=== PATIENT | female | born 1950 | race Caucasian/White ===

== ENCOUNTER 2019-07-04 10:36 | Emergency (ER) | payer MEDICARE ==
--- NOTE | 2019-07-04 11:26 | ED ---
General Adult HPI - General Chief complaint: Upper Respiratory Infection Stated complaint: chest/head congestion Time Seen by Provider: 07/04/19 11:00 Source: patient, RN notes reviewed, old records reviewed Mode of arrival: ambulatory Limitations: no limitations - History of Present Illness Initial comments: This is a 69-year-old female presents emergency department stating that over the weekend she had a fever for 103 but since then the fever has broke but she continues to cough as of yesterday she coughed up green sputum for she decided come emergency department. Patient denies any chest pain. Patient denies any shortness of breath or difficulty breathing. Patient denies any fever today. Patient denies any chills. Patient denies any nausea vomiting diarrhea. Patient has any rashes or lesions. Patient states she did not get a flu shot. - Related Data Previous Rx's Medication Instructions Recorded Azithromycin [Zithromax Tri-Cameron] 500 mg PO DAILY #3 tab 07/04/19 Allergies Allergy/AdvReac Type Severity Reaction Status Date / Time codeine AdvReac Nausea & Verified 07/04/19 10:52 Vomiting Review of Systems ROS Statement: Those systems with pertinent positive or pertinent negative responses have been documented in the HPI. ROS Other: All systems not noted in ROS Statement are negative. Past Medical History Past Medical History: No Reported History History of Any Multi-Drug Resistant Organisms: None Reported Past Surgical History: Adenoidectomy, Hysterectomy Past Psychological History: No Psychological Hx Reported Smoking Status: Former smoker Past Alcohol Use History: None Reported Past Drug Use History: Marijuana General Exam - General Exam Comments Initial Comments: GENERAL: Patient is well-developed and well-nourished. Patient is nontoxic and well- hydrated and is in mild distress. ENT: Neck is soft and supple. No significant lymphadenopathy is noted. Oropharynx is clear. Moist mucous membranes. Neck has full range of motion without eliciting any pain. EYES: The sclera were anicteric and conjunctiva were pink and moist. Extraocular movements were intact and pupils were equal round and reactive to light. Eyelids were unremarkable. PULMONARY: Unlabored respirations. Good breath sounds bilaterally. No audible rales rhonchi or wheezing was noted. CARDIOVASCULAR: There is a regular rate and rhythm without any murmurs gallops or rubs. ABDOMEN: Soft and nontender with normal bowel sounds. SKIN: Skin is clear with no lesions or rashes and otherwise unremarkable. NEUROLOGIC: Patient is alert and oriented x3. Cranial nerves II through XII are grossly intact. Motor and sensory are also intact. Normal speech, volume and content. Symmetrical smile. MUSCULOSKELETAL: Normal extremities with adequate strength and full range of motion. LYMPHATICS: No significant lymphadenopathy is noted PSYCHIATRIC: Normal psychiatric evaluation. Limitations: no limitations Course Vital Signs 07/04/19 07/04/19 10:49 10:51 Temperature 98.1 F Pulse Rate 85 Respiratory 16 18 Rate Blood Pressure 213/69 O2 Sat by Pulse 96 Oximetry Medical Decision Making - Medical Decision Making Chest x-ray shows no acute abnormality. Patient received 1 g of Rocephin IM - Lab Data Lab Results 07/04/19 Range/Units 11:30 Influenza Type A RNA Not Detected (Not Detectd) Influenza Type B (PCR) Not Detected (Not Detectd) Disposition Clinical Impression: Acute bronchitis Disposition: HOME SELF-CARE Instructions (If sedation given, give patient instructions): Acute Bronchitis (ED) Prescriptions: Azithromycin [Zithromax Tri-Cameron] 500 mg PO DAILY #3 tab Is patient prescribed a controlled substance at d/c from ED?: No Referrals: None,Stated [Primary Care Provider] - 1-2 days Time of Disposition: 12:12
--- NOTE | 2019-07-04 12:05 | XR ---
EXAMINATION TYPE: XR chest 2V DATE OF EXAM: 07/04/2019 COMPARISON: NONE HISTORY: Difficulty breathing, cough TECHNIQUE: Frontal and lateral views of the chest are obtained. FINDINGS: There is no focal air space opacity, pleural effusion, or pneumothorax seen. The cardiac silhouette size is within normal limits. The osseous structures are intact, there is thoracic spond ylosis. Aorta is dense. There is bronchial wall thickening. There are prominent lung volumes. IMPRESSION: Correlate for bronchitis, follow-up as indicated.
[2019-07-04] MEDS ORDERED: cefTRIAXone 1,000 MG VIAL (IM USE) IM STA (12:11)
[2019-07-04 12:34] VITALS: BP 136/62; PULSE 75; RESP 16; TEMP 98.5
== END 2019-07-04 12:36 | disposition home or self-care (01) ==
LOC: EC 10:36
DX: J20.9 Acute bronchitis, unspecified (principal); Z87.891 Personal history of nicotine dependence; Z88.5 Allergy status to narcotic agent; Z90.89 Acquired absence of other organs
CPT/HCPCS: 87502; 71046; 99284; 96372; J0696

== ENCOUNTER 2020-09-25 08:50 | Emergency (ER) | payer MEDICARE ==
[2020-09-25 08:59] VITALS: RESP 18
--- NOTE | 2020-09-25 09:31 | ED ---
General Adult HPI - General Chief complaint: Extremity Injury, Upper Stated complaint: shoulder/arm pain-previous fall Time Seen by Provider: 09/25/20 08:55 Source: patient Mode of arrival: ambulatory Limitations: no limitations - History of Present Illness Initial comments: Dictation was produced using [employer] dictation software. please excuse any grammatical, word or spelling errors. This patient was cared for during a federal and state declared state of emergency secondary to Covid 19 Chief Complaint: 70-year-old female presents to the emergency department for right shoulder pain History of Present Illness: 70-year-old female presents to the emergency department for chronic right shoulder pain. Patient states she fell in April on after slipping. She landed on her right side. She states that since that she's been having shoulder pain. She states that she has pain whenever she tries to raise her arm over her head. She is unable to tie her hair or reach to her back with her right upper extremity. She states she has pain to her entire right shoulder radiates down to her right elbow. Denies any numbness and paresthesias. The ROS documented in this emergency department record has been reviewed and confirmed by me. Those systems with pertinent positive or negative responses have been documented in the HPI. All other systems are other negative and/or noncontributory. PHYSICAL EXAM: General Impression: Alert and oriented x3, not in acute distress HEENT: Normocephalic atraumatic, extra-ocular movements intact, pupils equal and reactive to light bilaterally, mucous membranes moist. Cardiovascular: Heart regular rate and rhythm Chest: Able to complete full sentences, no retractions, no tachypnea Abdomen: abdomen soft, non-tender, non-distended, no organomegaly Musculoskeletal: Pulses present and equal in all extremities, no peripheral edema Motor: no focal deficits noted Right shoulder: External/internal rotation are intact, empty can test is limited. Passive range of motion is limited to 95 abduction Neurological: CN II-XII grossly intact, no focal motor or sensory deficits noted Skin: Intact with no visualized rashes Psych: Normal affect and mood ED course: 70-year-old female presents to the emergency department for chronic shoulder pain. Vital Signs upon arrival are within acceptable limits. Shoulder x-ray and elbow x-ray is unremarkable for any acute processes. There is a shoulder however a small ossific density lateral to the proximal humerus. Patient given outpatient follow-up with orthopedic surgery. Patient counseled on shoulder exercises. - Related Data Previous Rx's Medication Instructions Recorded Azithromycin [Zithromax Tri-Cameron] 500 mg PO DAILY #3 tab 07/04/19 Allergies Allergy/AdvReac Type Severity Reaction Status Date / Time codeine AdvReac Nausea & Verified 09/25/20 08:59 Vomiting Review of Systems ROS Statement: Those systems with pertinent positive or pertinent negative responses have been documented in the HPI. ROS Other: All systems not noted in ROS Statement are negative. Past Medical History Past Medical History: No Reported History History of Any Multi-Drug Resistant Organisms: None Reported Past Surgical History: Adenoidectomy, Hysterectomy Past Psychological History: No Psychological Hx Reported Smoking Status: Never smoker Past Alcohol Use History: None Reported Past Drug Use History: Marijuana General Exam Limitations: no limitations Course Vital Signs 09/25/20 08:53 Temperature 97.3 F L Pulse Rate 77 Respiratory 18 Rate Blood Pressure 176/71 O2 Sat by Pulse 99 Oximetry Disposition Clinical Impression: Shoulder pain Disposition: HOME SELF-CARE Condition: Good Instructions (If sedation given, give patient instructions): Shoulder Pain (ED) Is patient prescribed a controlled substance at d/c from ED?: No Referrals: Bandar Olivas MD [STAFF PHYSICIAN] - 1-2 days Time of Disposition: 10:31
--- NOTE | 2020-09-25 09:59 | XR ---
Right elbow HISTORY: Trauma and pain 3 views of the right elbow There is no evident joint effusion. Bone mineralization, joint spaces and alignment are maintained. IMPRESSION: No fracture or dislocation is evident.
--- NOTE | 2020-09-25 10:11 | XR ---
Right shoulder HISTORY: Trauma and pain 3 views right shoulder Bone mineralization, joint spaces and alignment are maintained. Right lung apex as visualized is norm al. Small ossific density lateral to the proximal humerus on the frontal view isn't well corticated a nd not felt to be acute. There is arthropathy of the acromioclavicular joint. Distal acromial spur is noted. IMPRESSION: No acute fracture or dislocation.
[2020-09-25] MEDS ORDERED: HYDROcodone/APAP 5-325MG 1 EACH TAB PO STA (10:35)
--- NOTE | 2020-09-25 10:48 | ED ---
Disposition Clinical Impression: Shoulder pain Disposition: HOME SELF-CARE Condition: Good Instructions (If sedation given, give patient instructions): Shoulder Pain (ED) Prescriptions: HYDROcodone/APAP 5-325MG [[place] 5-325] 1 tab PO Q6HR PRN 3 Days #12 tab PRN Reason: Severe Pain Is patient prescribed a controlled substance at d/c from ED?: No Referrals: Bandar Olivas MD [STAFF PHYSICIAN] - 1-2 days Time of Disposition: 10:51
[2020-09-25 11:02] VITALS: BP 129/71; PULSE 72; TEMP 98.8
== END 2020-09-25 10:59 | disposition home or self-care (01) ==
LOC: EC 08:50
DX: M25.511 Pain in right shoulder (principal); Z90.710 Acquired absence of both cervix and uterus; F12.90 Cannabis use, unspecified, uncomplicated
CPT/HCPCS: 99283